=== PATIENT | female | born 1980 | race Caucasian/White ===

== ENCOUNTER 2019-04-05 09:37 | Emergency (ER) | payer MEDICAID ==
[~2019-04-05] VITALS: Ht 160 cm; Wt 152.3 kg
[~2019-04-05 09:37] MED LIST: ADALAT CC60 MG PO; AMOXICILLIN 50500 MG PO; DYAZIDE 25 MG-31 CAP PO; MIRENA52 MG IY; MOTRIN 600600 MG/TAB PO; PERCOCET 325 MG1 TA2 PO; PHENERGAN 25 TA25 MG PO; PREDNISONE10 MG PO; PRENATAL1 TA2 PO; PROCARDIA XL 3030 MG PO; PROCARDIA XL 6060 MG PO; PROVENTIL0.09 MG/A1 IH; PROZAC 20MG20 MG PO; PROZAC40 MG PO; PROZAC60 MG; PULMICORT90 MCG/Act IH; RHINOCORT0.032 MG/1 NS; TOPAMAX 25MG25 M1 PO; VALTREX1 GM PO
[2019-04-05] MEDS ORDERED: CILOXAN 5 ML5 ML OD (09:57)
[2019-04-05 10:01] VITALS: BP 138/71; PULSE 88; TEMP 97.6
== END 2019-04-05 10:05 | disposition home or self-care (01) ==
LOC: COL.ER 09:37
DX: B99.9 Unspecified infectious disease (principal); H10.89 Other conjunctivitis; F32.9 Major depressive disorder, single episode, unspecified; I10 Essential (primary) hypertension; G43.909 Migraine, unspecified, not intractable, without status migrainosus; J45.909 Unspecified asthma, uncomplicated

== ENCOUNTER 2019-04-30 14:08 | Emergency (ER) | payer MEDICAID ==
[~2019-04-30] VITALS: Ht 160 cm; Wt 152.3 kg
[~2019-04-30 14:08] MED LIST changes: +CILOXAN 5 ML5 ML OD; +DEPAKOTE ER 50500 MG PO; +FLEXERIL 1010 MG/TAB PO; +LIDODERM 5% PATC1 EA TP
[2019-04-30 14:17] VITALS: TEMP 98.4
[2019-04-30 14:29] VITALS: BP 166/99
[2019-04-30] MEDS ORDERED: ZOLOFT 50MG50 MG (14:34)
[2019-04-30 15:25] VITALS: PULSE 91
== END 2019-04-30 15:27 | disposition home or self-care (01) ==
LOC: COL.ER 14:08
DX: F32.9 Major depressive disorder, single episode, unspecified (principal); R45.4 Irritability and anger; F43.10 Post-traumatic stress disorder, unspecified; F41.9 Anxiety disorder, unspecified

== ENCOUNTER 2019-05-22 08:45 | Outpatient (RCR) | payer MEDICAID ==
[~2019-05-22 08:45] MED LIST changes: +ZOLOFT 50MG50 MG
== END 2019-06-07 14:11 | disposition home or self-care (01) ==
LOC: MKS.ESL.PT 08:45
DX: M54.6 Pain in thoracic spine (principal); M25.562 Pain in left knee; G89.29 Other chronic pain
CPT/HCPCS: G0283-GP

== ENCOUNTER 2019-07-11 13:38 | Emergency (ER) | payer MEDICAID ==
[~2019-07-11] VITALS: Ht 160 cm; Wt 150.0 kg
[2019-07-11 13:40] VITALS: TEMP 97.5
[2019-07-11] MEDS ORDERED: CLINORIL 2200 MG/TAB PO (15:31)
[2019-07-11] MEDS ORDERED: WELLBUTRIN XL150 MG PO (15:32)
[2019-07-11 15:56] LABS: BASO % 0.4 % (0.0-2.0); EOS # 0.2 (0.0-0.7); EOS % 1.5 % (0-4.0); GRAN # 6.1 (1.4-6.5); GRAN % 62.8 % (42.2-75.2); HEMATOCRIT 37.1 % (37.0-47.0); HEMOGLOBIN 11.4 g/dl (12.5-16.0); LYMPH # 2.9 (1.2-3.4); LYMPH % 29.7 % (20.0-51.0); MEAN CELL VOLUME 79 fl (80.0-100.0); MEAN CORPUSCULAR HEMOGLOBIN 24 pg (27.0-31.0); MEAN CORPUSCULAR HGB CONC 31 g/dl (33.0-37.0); MEAN PLATELET VOLUME 11.2 fl (7.4-10.4); MONO # 0.5 (0.1-0.6); MONO % 5.1 % (1.7-9.3); PLATELET COUNT 241 K/mm3 (130-400); RED BLOOD COUNT 4.69 M/mm3 (4.10-5.30); REDCELL DISTRIBUTION WIDTH-CV 16.8 % (11.5-14.5)
[2019-07-11 16:05] LABS: ALBUMIN 4.2 gm/dL (3.5-5.0); BILIRUBIN,TOTAL 0.5 mg/dL (0.0-1.0); C-REACTIVE PROTEIN 1.4 mg/dL (0.0-0.9); CALCIUM 9.4 mg/dL (8.4-10.2); CREATININE, serum 0.69 (0.52-1.25); POTASSIUM 3.6 mmol/L (3.4-5.0); TOTAL PROTEIN 8.1 gm/dL (6.4-8.2)
[2019-07-11] MEDS ORDERED: ZOFRAN ODT4 MG PO (18:15)
[2019-07-11 18:36] VITALS: BP 150/97; PULSE 80
== END 2019-07-11 18:36 | disposition home or self-care (01) ==
LOC: COL.ER 13:38
PROVIDERS: Family Medicine
DX: K52.9 Noninfective gastroenteritis and colitis, unspecified (principal); I10 Essential (primary) hypertension; J45.909 Unspecified asthma, uncomplicated; F43.10 Post-traumatic stress disorder, unspecified
CPT/HCPCS: J2405; J7030

== ENCOUNTER → 2019-09-06 | Outpatient (CLI) | payer OTHER ==
[~2019-09-06] MED LIST changes: +CLINORIL 2200 MG/TAB PO; +WELLBUTRIN XL150 MG PO; +ZOFRAN ODT4 MG PO
== END ==
LOC: COL.PUL 12:17
DX: Z02.71 Encounter for disability determination (principal); M51.36 Other intervertebral disc degeneration, lumbar region; M17.12 Unilateral primary osteoarthritis, left knee

== ENCOUNTER 2019-09-17 09:50 | Emergency (ER) | payer SELFPAY ==
[~2019-09-17] VITALS: Ht 160 cm; Wt 153.5 kg
[2019-09-17 09:58] VITALS: TEMP 98.3
[2019-09-17] MEDS ORDERED: FLEXERIL 1010 MG/TAB PO (12:13)
[2019-09-17] MEDS ORDERED: NORCO 325 MG-51 TAB PO (12:13)
[2019-09-17 12:20] VITALS: BP 155/80; PULSE 82
== END 2019-09-17 12:20 | disposition home or self-care (01) ==
LOC: COL.ER 09:50
DX: M54.5 Low back pain (principal); E11.9 Type 2 diabetes mellitus without complications; J45.909 Unspecified asthma, uncomplicated; F41.9 Anxiety disorder, unspecified; F32.9 Major depressive disorder, single episode, unspecified

== ENCOUNTER → 2019-12-03 | Outpatient (CLI) | payer MEDICAID ==
[~2019-12-03] MED LIST changes: +NORCO 325 MG-51 TAB PO
== END ==
LOC: COL.RAD 10:42
DX: M54.42 Lumbago with sciatica, left side (principal); G89.29 Other chronic pain

== ENCOUNTER 2020-01-22 09:12 | Emergency (ER) | payer MEDICAID ==
[~2020-01-22] VITALS: Ht 160 cm; Wt 156.8 kg
[2020-01-22 09:38] VITALS: TEMP 98.5
[2020-01-22 09:56] LABS: BASO % 0.3 % (0.0-2.0); EOS # 0.1 (0.0-0.7); EOS % 1.6 % (0-4.0); GRAN # 6.1 (1.4-6.5); GRAN % 68.2 % (42.2-75.2); HEMATOCRIT 37.5 % (37.0-47.0); HEMOGLOBIN 11.3 g/dl (12.5-16.0); LYMPH # 2.2 (1.2-3.4); LYMPH % 24.5 % (20.0-51.0); MEAN CELL VOLUME 79 fl (80.0-100.0); MEAN CORPUSCULAR HEMOGLOBIN 24 pg (27.0-31.0); MEAN CORPUSCULAR HGB CONC 30 g/dl (33.0-37.0); MEAN PLATELET VOLUME 10.7 fl (7.4-10.4); MONO # 0.4 (0.1-0.6); MONO % 4.3 % (1.7-9.3); PLATELET COUNT 220 K/mm3 (130-400); RED BLOOD COUNT 4.75 M/mm3 (4.10-5.30); REDCELL DISTRIBUTION WIDTH-CV 16.3 % (11.5-14.5)
[2020-01-22 10:14] LABS: ALANINE AMINOTRANSFERASE 13 U/L (4-34); ALKALINE PHOSPHATASE 99 U/L (50-136); ANION GAP 6 mmol/L (7-16); AST,SGOT 20 U/L (15-37); BILIRUBIN,TOTAL 0.7 mg/dL (0.0-1.0); BLOOD UREA NITROGEN 14 mg/dL (7-17); C-REACTIVE PROTEIN 2.2 mg/dL (0.0-0.9); CARBON DIOXIDE 26 mmol/L (22-30); CHLORIDE 108 mmol/L (98-107); CREATININE, serum 0.65 (0.52-1.25); GLUCOSE 126 mg/dL (74-106); SODIUM 140 mmol/L (137-145); TOTAL PROTEIN 7.9 gm/dL (6.4-8.2)
[2020-01-22 10:26] LABS: TROPONIN-I < 0.012 ng/mL (0.000-0.035)
[2020-01-22 11:00] VITALS: BP 155/96; PULSE 76
== END 2020-01-22 11:15 | disposition home or self-care (01) ==
LOC: COL.ER 09:12
PROVIDERS: Physician Assistant
DX: R07.89 Other chest pain (principal); E11.9 Type 2 diabetes mellitus without complications; J45.909 Unspecified asthma, uncomplicated; F43.10 Post-traumatic stress disorder, unspecified; F32.9 Major depressive disorder, single episode, unspecified; F41.9 Anxiety disorder, unspecified

== ENCOUNTER → 2020-03-28 | Outpatient (CLI) | payer MEDICAID | LOC: MC.RAD 08:20 | DX: N63.21 Unspecified lump in the left breast, upper outer quadrant (principal) ==

== ENCOUNTER → 2020-09-29 | Outpatient (CLI) | payer MEDICAID | LOC: MC.RAD 09:00 | DX: N63.21 Unspecified lump in the left breast, upper outer quadrant (principal) ==

== ENCOUNTER → 2021-03-24 | Outpatient (CLI) | payer MEDICAID | LOC: MC.RAD 09:49 | DX: Z12.31 Encounter for screening mammogram for malignant neoplasm of breast (principal) ==

== ENCOUNTER → 2023-05-26 | Outpatient (CLI) | payer MEDICAID ==
[~2023-05-26] MED LIST changes: +CILOXAN 5 ML5 ML OT; +PREDNISONE20 MG PO; +ZITHROMAX Z PA250 MG PO
== END ==
LOC: CANPRECLI → COL.RAD 05-24 09:30
DX: J32.9 Chronic sinusitis, unspecified (principal)

== ENCOUNTER → 2024-03-06 | Outpatient (CLI) | payer MEDICAID | LOC: MC.RAD 10:46 | DX: Z12.31 Encounter for screening mammogram for malignant neoplasm of breast (principal) ==